=== PATIENT | male | born 1990 | race Caucasian/White ===

== ENCOUNTER 2017-06-15 02:51 | Emergency (ER) | payer OTHER ==
[~2017-06-15] VITALS: Ht 182.9 cm; Wt 63.8 kg
[~2017-06-15 02:51] MED LIST: KEFLEX500 MG PO; PERCOCET 5/31 TABLET PO
[2017-06-15] MEDS ORDERED: ZOFRAN ODT4 MG PO (04:15)
[2017-06-15 04:47] VITALS: BP 104/58
== END 2017-06-15 04:48 | disposition home or self-care (01) ==
LOC: EME → EDBD 02:51 → EME 04:48
DX: F11.23 Opioid dependence with withdrawal (principal); R53.1 Weakness; M79.1 Myalgia; R15.9 Full incontinence of feces; F17.200 Nicotine dependence, unspecified, uncomplicated
CPT/HCPCS: 99281; 99284